=== PATIENT | female | born 1995 | race Caucasian/White ===

== ENCOUNTER 2016-08-24 08:55 | Inpatient (IN) | payer BC, OTHER ==
[2016-08-24] MEDS ORDERED: AMPICILLIN - 2 GM in SODIUM CHLORIDE 100 ML IVPB ONE (09:15)
[2016-08-24] MEDS ORDERED: ELECTROLYTE-148 SOLN 1,000 ML IV SCH (09:30)
[2016-08-24] MEDS: D5W-LR W/ 20 UNITS OXYTOCIN 1,000 ML IV SCH (10:00)
--- NOTE | 2016-08-24 10:01 | HP ---
Past Medical History - Admission History of Present Illness: 21 yo @ 35 3/7 wks, EDC 09/25/2016 complicated by: 1. Prior history of delivery at 33wks On vaginal progesterone for shortened cervical length s/p BMZ at 32 weeks 2. Late to care at 31.1 weeks 3. Iron deficient anemia 4. Decreased platelet, 133 at 31 weeks Patient reports contractions began at 0645 this AM. She denies leakage of fluid or vaginal bleeding, reports positive movement. History Source: Patient Limitations to Obtaining History: No Limitations - Past Medical History Cardiovascular: No: HTN Pulmonary: No: Asthma Gastrointestinal: No: GERD ...: 2 ...Para: 1 ...Term: 0 ...: 1 ... Weeks Gestation by Dates: 35.3 Heme/Onc: Yes: Anemia - Past Surgical History Past Surgical History: Yes: None Hx Myomectomy: No Hx Transabdominal Cerclage: No - Smoking History Smoking history: Never smoked - Alcohol/Substance Use Hx Alcohol Use: No History of Substance Use: reports: None - Social History ADL: Independent Occupation: Student History of Recent Travel: No Home Medications - Allergies Allergies/Adverse Reactions: Allergies Allergy/AdvReac Type Severity Reaction Status Date / Time No Known Drug Allergies Allergy Verified 09/18/15 12:07 nut - unspecified Allergy Itching Verified 09/18/15 12:01 fruits Allergy Uncoded 12/25/13 19:48 - Home Medications Home Medications: Ambulatory Orders Zmo313/Iron Fumarate/FA/Dss [ 19 Tablet] 1 each PO DAILY 09/18/15 Progesterone,Micronized [Endometrin] 100 mg VG DAILY MDD 1 07/31/16 Family Disease History - Family Disease History Family History: Unremarkable Review of Systems - Review of Systems Constitutional: reports: No Symptoms Cardiovascular: reports: No Symptoms Respiratory: reports: No Symptoms Gastrointestinal: reports: No Symptoms Genitourinary: reports: No Symptoms Musculoskeletal: reports: No Symptoms Endocrine: reports: No Symptoms Hematology/Lymphatic: reports: No Symptoms Psychiatric: reports: No Symptoms Physical Exam - Maternity Vital Signs: Vital Signs Temperature 97.5 F L 08/24/16 09:30 Pulse Rate 75 08/24/16 09:30 Respiratory Rate 20 08/24/16 09:30 Blood Pressure 121/77 08/24/16 09:30 O2 Sat by Pulse Oximetry (%) Constitutional: Yes: Well Nourished, No Distress, Calm Cardiovascular: Yes: Regular Rate and Rhythm Lungs: Clear to auscultation - Abdominal Exam/OB Fundal Height: 40 Number of Fetuses: Single Presentation: Vertex Contractions: Yes Regularity: Regular Category: I Accelerations: Non-Uniform Decelerations: None - Vaginal Exam/OB Vaginal Bleediing: No Dilatation (cm): 10 Effacement (%): 100 Amniotic Membrane Status: Bulging Station: -2 - Physical Exam Edema: No Psychiatric: Yes: Alert, Oriented Hemorrhage Risk Assessment - Risk Factors Medium Risk Factors: Yes: None High Risk Factors: Yes: None Risk Score: 1 Risk Level: Medium Risk Assessment/Plan 21 yo @ 35 3/7 wks, labor, active labor 1. Admit to L&D Consents reviewed and signed 2. Admission labs and HIV drawn 3. GBS unknown, will order ampicillin 4. Will proceed with expectant management
[2016-08-24] MEDS ORDERED: WITCH HAZEL 50% (TUCKS) 40 PAD/JAR PAD TP PRN (10:08)
[2016-08-24] MEDS ORDERED: METHYLERGONOVINE MALEATE 0.2 MG/1 ML AMP IM PRN (10:08)
[2016-08-24] MEDS ORDERED: BISACODYL 10 MG SUPP.RECT RC PRN (10:08)
[2016-08-24] MEDS ORDERED: BENZOCAINE 28 GM HEMORRHOIDAL OINTMENT TP PRN (10:08)
[2016-08-24] MEDS ORDERED: BENZOCAINE 20% 57 GM BOTTLE TP PRN (10:08)
--- NOTE | 2016-08-24 10:14 | PN ---
Delivery - Delivery Vaginal Delivery: No Problems Type of Anesthesia: None Episiotomy/Laceration: None EBL (cc): 300 Delivery, Single - Stages of Labor Date 1st Stage Initiatied: 08/24/16 Time 1st Stage Initiated: 06:45 Date 2nd Stage Initiated: 08/24/16 Time 2nd Stage Initiated: 09:15 Date of Delivery: 08/24/16 Time of Delivery: 09:50 Date Placenta Delivered: 08/24/16 Time Placenta Delivered: 10:00 Placenta: Yes: Spontaneous - Condition of Thermite Welder/Buffer Chrome Present: Yes Infant Gender: Female Position: Left, OA - 1 Minute Total Score: 9 5 Minutes Total Score: 9 Remarks - Remarks Remarks: Patient progressed to fully dilated and at 0950 via delivered a viable female infant in JENNIFER position, APGARs 9,9. Weight and length unknown at this time. Head delivered spontaneously followed by shoulders and body without difficulty. Infant with spontaneous cry and nose and mouth was bulb suctioned. Cord was clamped and cut, baby was handed to waiting NICU staff. Perineum and vagina examined, no lacerations noted. Placenta was delivered spontaneously and intact. 20 units of pitocin in 1 L IVF was given. All counts correct x 2. Mother and stable in LDR. EBL 300cc.
[2016-08-24] MEDS ORDERED: DEXTROSE 5%-LACTATED RINGERS 1,000 ML IV SCH (10:30)
[2016-08-24 10:33] VITALS: BMI 19.6
[2016-08-24 11:18] LABS: BASOPHIL 0.3 % (0-2.0); MCH 26.9 pg (25.7-33.7); MCHC 32.5 g/dl (32.0-36.0); MEAN CELL VOLUME 82.9 fl (80-96); MEAN PLT VOLUME 10.8 fl (7.5-11.1); RDW 25.6 % (11.6-15.6); WHITE BLOOD COUNT 12.4 K/mm3 (4.0-10.0)
[2016-08-24 11:39] LABS: INR 0.94 (0.82-1.09); PROTHROMBIN TIME (PATIENT) 10.3 SEC (9.98-11.88)
[2016-08-24 11:42] LABS: ACTIVATED PTT 20.7 SECONDS (26.9-34.4)
[2016-08-24] MEDS ORDERED: TUBERCULIN PPD 5 TU/0.1ML SYRINGE (IN PATIENT USE ONLY) ID ONE (12:00)
[2016-08-24 12:05] LABS: ANISOCYTOSIS 3+; PLATELET COMMENT2 NO CLUMPING NOTED; PLATELET COMMENT3 NO CLOTTING DETECTED; PLATELET COUNT 83 K/MM3 (134-434); PLATELET ESTIMATE DECREASED (NORMAL)
[2016-08-24] MEDS: FERROUS SO4 325 MG TABLET (FP) PO SCH ×2 (12:11→17:01)
[2016-08-24 12:20] LABS: HIV 1 & 2 AB NEGATIVE; HIV 1 AGp24 NEGATIVE
[2016-08-24] MEDS: ACETAMINOPHEN 325 MG TABLET (FP) PO PRN ×3 (14:03→21:56)
[2016-08-24] MEDS: IBUPROFEN 600 MG TABLET (FP) PO PRN ×2 (14:04→21:53)
[2016-08-25] MEDS: IBUPROFEN 600 MG TABLET (FP) PO PRN ×2 (04:23→21:28)
[2016-08-25] MEDS: ACETAMINOPHEN 325 MG TABLET (FP) PO PRN ×2 (04:24→21:29)
[2016-08-25 08:02] LABS: BASOPHIL 0.1 % (0-2.0); EOSINOPHIL 0.5 % (0-4.5); MCHC 32.3 g/dl (32.0-36.0); MEAN CELL VOLUME 83.4 fl (80-96); MEAN PLT VOLUME 10.9 fl (7.5-11.1); PLATELET COUNT 78 K/MM3 (134-434); RDW 26.1 % (11.6-15.6); WHITE BLOOD COUNT 9.9 K/mm3 (4.0-10.0)
[2016-08-25] MEDS: FERROUS SO4 325 MG TABLET (FP) PO SCH ×3 (08:43→17:50)
[2016-08-25] MEDS ORDERED: INFLUENZA VACCINE 45 MCG/0.5 ML (MDV 16-17) IM ONE (10:00)
[2016-08-25] MEDS ORDERED: INFLUENZA VACCINE 60 MCG/0.5 ML (P/F DISP.SYRIN 16-17) IM ONE (10:00)
--- NOTE | 2016-08-25 10:08 | PN ---
Post Progress Note - Subjective Subjective: Patient without acute complaints. Denies spontaneous bleeding or bruising. Reports tolerating oral intake without nausea or vomiting. Ambulating without dizziness. Denies fevers or chills. Pain well controlled with oral pain medication. Pumping, + colostrum Passing flatus. Post Day: 1 Type of Delivery: Vital Signs: Vital Signs Temperature 97.9 F 08/25/16 08:15 Pulse Rate 79 08/25/16 08:15 Respiratory Rate 18 08/25/16 08:15 Blood Pressure 111/64 08/25/16 08:15 O2 Sat by Pulse Oximetry (%) 100 08/24/16 11:00 Breast Exam: Yes: Engorged Uterus: Yes: Fundus Firm, Fundus below umbilicus Abdomen/GI: Yes: Abdomen soft, Passing flatus, Tolerating PO. No: Tender Lochia: Yes: Serosa Lochia, amount: Small Extremities: Yes: Calves non-tender. No: Edema Perineum: Yes: Intact Activity: Ambulating - Labs Labs: CBC WBC 9.9 K/mm3 (4.0-10.0) 08/25/16 06:50 RBC 4.14 M/mm3 (3.60-5.2) 08/25/16 06:50 Hgb 11.2 GM/dL (10.7-15.3) 08/25/16 06:50 Hct 34.5 % (32.4-45.2) 08/25/16 06:50 MCV 83.4 fl (80-96) 08/25/16 06:50 MCHC 32.3 g/dl (32.0-36.0) 08/25/16 06:50 RDW 26.1 % (11.6-15.6) H 08/25/16 06:50 Plt Count 78 K/MM3 (134-434) L 08/25/16 06:50 MPV 10.9 fl (7.5-11.1) 08/25/16 06:50 Neutrophils % 74.0 % (42.8-82.8) 08/25/16 06:50 Lymphocytes % 21.6 % (8-40) D 08/25/16 06:50 Monocytes % 3.8 % (3.8-10.2) 08/25/16 06:50 Eosinophils % 0.5 % (0-4.5) D 08/25/16 06:50 Basophils % 0.1 % (0-2.0) 08/25/16 06:50 Nucleated RBCs Cancelled 08/25/16 06:50 Hypersegmented Neuts Cancelled 08/25/16 06:50 Toxic Granulation Cancelled 08/25/16 06:50 Dohle Bodies Cancelled 08/25/16 06:50 Rey Rods Cancelled 08/25/16 06:50 Platelet Estimate Decreased (NORMAL) 08/24/16 11:05 Platelet Comment Few giant plts 08/24/16 11:05 Platelet Comment No clumping noted 08/24/16 11:05 RBC Morphology 08/25/16 06:50 Polychromasia Cancelled 08/25/16 06:50 Hypochromic-Microcytic Cancelled 08/25/16 06:50 Poikilocytosis Cancelled 08/25/16 06:50 Basophilic Stippling Cancelled 08/25/16 06:50 Anisocytosis 3+ 08/24/16 11:05 Microcytosis Cancelled 08/25/16 06:50 Macrocytosis Cancelled 08/25/16 06:50 Spherocytes Cancelled 08/25/16 06:50 Siderocytes Cancelled 08/25/16 06:50 Sickle Cells Cancelled 08/25/16 06:50 Target Cells Cancelled 08/25/16 06:50 Tear Drop Cells Cancelled 08/25/16 06:50 Ovalocytes Cancelled 08/25/16 06:50 Stomatocytes Cancelled 08/25/16 06:50 Helmet Cells Cancelled 08/25/16 06:50 [place] Bodies Cancelled 08/25/16 06:50 [place] Rings Cancelled 08/25/16 06:50 [place] Cells Cancelled 08/25/16 06:50 Acanthocytes (Spur) Cancelled 08/25/16 06:50 Rouleaux Cancelled 08/25/16 06:50 Fragmented RBCs Cancelled 08/25/16 06:50 Schistocytes Cancelled 08/25/16 06:50 Morphology Comment Cancelled 08/25/16 06:50 Assessment/Plan 21 yo PPD #1 s/p , afebrile, vital signs stable, doing well 1. Continue routine care. 2. CBC without signs of anemia + decreasing platelets. Plan to repeat and if continued trending downward, will consult hematology. 3. Rh positive status, no rhogam indicated. 4. Late to care, will order urine toxicology 5. Encourage ambulation 6. Continue oral pain medication 7. Anticipate discharge home day #2
[2016-08-25] MEDS: PRENATAL VITAMINS W/ FOLIC ACID TABLET (FP) PO SCH (11:05)
[2016-08-25] MEDS: DIPHTH,PERTUSS(ACELL),TET 0.5 ML DISP.SYRIN IM ONE ×2 (11:06→14:22)
[2016-08-25 12:23] LABS: MCH 26.8 pg (25.7-33.7); MEAN CELL VOLUME 83.8 fl (80-96); MEAN PLT VOLUME 9.7 fl (7.5-11.1); PLATELET COUNT 77 K/MM3 (134-434); WHITE BLOOD COUNT 9.5 K/mm3 (4.0-10.0)
[2016-08-25 13:28] LABS: URINE MARIJUANA THC NEGATIVE ng/ml (CUTOFF=50)
--- NOTE | 2016-08-25 15:00 | CONSULT ---
Consult - text type - Consultation Consultation Note: Patient seen and examined We have been asked to consult for thrombocytosis Patient denies any fever/chills/cough/shortness of breath/abdominal pain/nausea/ vomiting/diarrhea/urinary symptoms Delivere yesterday. Normal vaginal delivery. no complications. Some spotting today. PMH Last Vital Signs Temp Pulse Resp BP Pulse Ox 98.6 F 82 18 118/70 100 08/26/16 10:00 08/26/16 10:00 08/26/16 10:00 08/26/16 10:00 08/24/16 11:00 HEENT: CRISTY, EOM Intact Oropharynx: No thrush, No mucositis Neck: Supple Nodes: Without adenopathy Cor: RSR, No murmurs, No gallops Lungs: Clear to P&A Abd: Soft, Normal bowel sounds, No organomegaly Labs/Meds reviewed A/P 21 y/o post D # 2 thrombocytopenia --noted even during her last in 2016 Platelts 70-90 range ? gestational thrombocytopenia vs ITP No prior h/o thrombocytopenia. No active bleeding. No systmeic symptoms If gestational thrombocytopenia expect it to resolve in 2-6 weeks after delivery If ITp --will not resolve checked smear--occ. giant platelets, few atypical lymphocytes, normocytic/ normochromic platelet count in baby has been normal today and yesterday Monitor CBCs and outpatient hematology f/u
[2016-08-25 19:24] LABS: BASOPHIL 0.3 % (0-2.0); EOSINOPHIL 0.5 % (0-4.5); MCH 26.8 pg (25.7-33.7); MCHC 32.1 g/dl (32.0-36.0); MEAN CELL VOLUME 83.6 fl (80-96); MEAN PLT VOLUME 11.1 fl (7.5-11.1); NEUTROPHILS 72.6 % (42.8-82.8); PLATELET COUNT 91 K/MM3 (134-434); RDW 27.4 % (11.6-15.6); WHITE BLOOD COUNT 9.2 K/mm3 (4.0-10.0)
[2016-08-25 20:02] LABS: ALBUMIN 2.9 g/dl (3.4-5.0); ALK PHOS 148 U/L (45-117); ANION GAP 9 (8-16); BILIRUBIN,TOTAL 0.1 mg/dL (0.2-1.0); CALCIUM 8.3 mg/dL (8.5-10.1); CO2 27 mmol/L (21-32); CREATININE 0.4 mg/dL (0.55-1.02); GLUCOSE,RANDOM 65 mg/dL (74-106); LDH 260 U/L (84-246); SGOT/AST 33 U/L (15-37); SGPT/ALT 23 U/L (12-78); TOT PROT 6.5 g/dl (6.4-8.2)
[2016-08-25 20:19] LABS: PLATELET ESTIMATE DECREASED (NORMAL)
[2016-08-25 20:20] LABS: ANISOCYTOSIS 3+; PLATELET COMMENT2 NO CLUMPING NOTED; POIKILOCYTOSIS 1+; POLYCHROMASIA FEW
[2016-08-25] MEDS ORDERED: SENNOSIDES/DOCUSATE COMBO (SENNA PLUS) TABLET (UD) PO PRN (22:00)
--- NOTE | 2016-08-26 08:15 | PN ---
Post Progress Note - Subjective Subjective: 21 yo P2 now s/p Ambulating, voiding, tolerating regular diet No TINOCO, no RUQ pain, no spontaneous bleeding Post Day: 2 Type of Delivery: Vital Signs: Vital Signs Temperature 98.1 F 08/25/16 22:00 Pulse Rate 79 08/25/16 22:00 Respiratory Rate 18 08/25/16 22:00 Blood Pressure 101/66 08/25/16 22:00 O2 Sat by Pulse Oximetry (%) 100 08/24/16 11:00 Breast Exam: Yes: Soft Uterus: Yes: Fundus Firm, Fundus below umbilicus, Non-tender Abdomen/GI: Yes: Abdomen soft Lochia: Yes: Rubra Lochia, amount: Small Extremities: Yes: Calves non-tender Perineum: Yes: Intact Activity: Ambulating - Labs Labs: CBC WBC 9.2 K/mm3 (4.0-10.0) 08/25/16 18:15 RBC 4.12 M/mm3 (3.60-5.2) 08/25/16 18:15 Hgb 11.0 GM/dL (10.7-15.3) 08/25/16 18:15 Hct 34.4 % (32.4-45.2) 08/25/16 18:15 MCV 83.6 fl (80-96) 08/25/16 18:15 MCHC 32.1 g/dl (32.0-36.0) 08/25/16 18:15 RDW 27.4 % (11.6-15.6) H 08/25/16 18:15 Plt Count 91 K/MM3 (134-434) L 08/25/16 18:15 MPV 11.1 fl (7.5-11.1) D 08/25/16 18:15 Neutrophils % 72.6 % (42.8-82.8) 08/25/16 18:15 Lymphocytes % 21.0 % (8-40) 08/25/16 18:15 Monocytes % 5.6 % (3.8-10.2) 08/25/16 18:15 Eosinophils % 0.5 % (0-4.5) 08/25/16 18:15 Basophils % 0.3 % (0-2.0) 08/25/16 18:15 Nucleated RBCs Cancelled 08/25/16 06:50 Hypersegmented Neuts Cancelled 08/25/16 06:50 Toxic Granulation Cancelled 08/25/16 06:50 Dohle Bodies Cancelled 08/25/16 06:50 Rey Rods Cancelled 08/25/16 06:50 Platelet Estimate Decreased (NORMAL) 08/25/16 18:15 Platelet Comment Few giant plts 08/25/16 18:15 Platelet Comment No clumping noted 08/25/16 18:15 RBC Morphology 08/25/16 06:50 Polychromasia Few 08/25/16 18:15 Hypochromic-Microcytic Cancelled 08/25/16 06:50 Poikilocytosis 1+ 08/25/16 18:15 Basophilic Stippling Cancelled 08/25/16 06:50 Anisocytosis 3+ 08/25/16 18:15 Microcytosis Cancelled 08/25/16 06:50 Macrocytosis 1+ 08/25/16 18:15 Spherocytes Cancelled 08/25/16 06:50 Siderocytes Cancelled 08/25/16 06:50 Sickle Cells Cancelled 08/25/16 06:50 Target Cells Cancelled 08/25/16 06:50 Tear Drop Cells Cancelled 08/25/16 06:50 Ovalocytes Cancelled 08/25/16 06:50 Stomatocytes Cancelled 08/25/16 06:50 Helmet Cells Cancelled 08/25/16 06:50 [place] Bodies Cancelled 08/25/16 06:50 [place] Rings Cancelled 08/25/16 06:50 [place] Cells Cancelled 08/25/16 06:50 Acanthocytes (Spur) Cancelled 08/25/16 06:50 Rouleaux Cancelled 08/25/16 06:50 Fragmented RBCs Cancelled 08/25/16 06:50 Schistocytes Cancelled 08/25/16 06:50 Morphology Comment Cancelled 08/25/16 06:50 Assessment/Plan 21 yo P2 PPD # 2 s/p VSS, Afibrile Lab tests improving thrombocytopenia Heme consult appreciated Depoprovera for BC prior to discharge Plan to D/C once labwork is back and showing further improvement Instructed nothing vaginally for 6 wks Return to office in 6 weeks
[2016-08-26 08:45] LABS: BASOPHIL 0.3 % (0-2.0); EOSINOPHIL 0.7 % (0-4.5); MCH 26.5 pg (25.7-33.7); MCHC 31.4 g/dl (32.0-36.0); MEAN CELL VOLUME 84.5 fl (80-96); MEAN PLT VOLUME 9.8 fl (7.5-11.1); NEUTROPHILS 76.9 % (42.8-82.8); PLATELET COUNT 80 K/MM3 (134-434); RDW 27.5 % (11.6-15.6); WHITE BLOOD COUNT 7.2 K/mm3 (4.0-10.0)
[2016-08-26] MEDS: FERROUS SO4 325 MG TABLET (FP) PO SCH ×2 (08:54→12:00)
[2016-08-26 09:08] LABS: INR 0.93 (0.82-1.09); PROTHROMBIN TIME (PATIENT) 10.2 SEC (9.98-11.88)
[2016-08-26 09:10] LABS: ALBUMIN 2.8 g/dl (3.4-5.0); ANION GAP 9 (8-16); BILIRUBIN,TOTAL 0.3 mg/dL (0.2-1.0); CALCIUM 8.1 mg/dL (8.5-10.1); CO2 26 mmol/L (21-32); CREATININE 0.5 mg/dL (0.55-1.02); GLUCOSE,RANDOM 64 mg/dL (74-106); LDH 247 U/L (84-246); SGOT/AST 34 U/L (15-37); SGPT/ALT 23 U/L (12-78); TOT PROT 6.2 g/dl (6.4-8.2)
[2016-08-26 09:11] LABS: ACTIVATED PTT 28.9 SECONDS (26.9-34.4)
[2016-08-26] MEDS ORDERED: medroxyPROGESTERone ACET 150 MG/1 ML VIAL IM ONE (09:15)
[2016-08-26 09:19] LABS: ALK PHOS 136 U/L (45-117); FREE T4 1.27 ng/dl (0.76-1.46); THYROID STIMULATING HORMONE 1.83 uIU/ml (0.358-3.74)
[2016-08-26 10:15] VITALS: BP 118/70; PULSE 82; TEMP 98.6
[2016-08-26] MEDS: PRENATAL VITAMINS W/ FOLIC ACID TABLET (FP) PO SCH (10:44)
[2016-08-26] MEDS: D5W-LR W/ 20 UNITS OXYTOCIN 1,000 ML IV SCH (14:34)
[2016-08-27 06:06] LABS: SERUM IRON 36 ug/dL (27-159); TOTAL IRON BINDING CAPACITY 357 ug/dL (250-450); UIBC 321 ug/dL (131-425)
--- NOTE | 2016-08-27 14:59 | PATH ---
Surgical Pathology Report Patient Name: CHET BOYLE Med. Rec. #: [id number] /Age/Gender: 1995 (Age: 21) / F Account: [id number] Location: [facility] OBS/FORENSICS TEAM DIRECTOR Taken: 08/26/2016 Received: 08/26/2016 Reported: 08/27/2016 Physicians: Sridevi Carbajal M.D. Specimen(s) Received PERIPHERAL BLOOD Clinical History None Provided Final Diagnosis PERIPHERAL BLOOD: FL[facility] [place] ([id number]) shows the following: INTERPRETATION: In the sample analyzed, there is no evidence of B or T-cell proliferative disorders or increased blasts. Electronically Signed Joel Siddiqui M.D. Gross Description Received are 2 green top tubes of peripheral blood which are sent to [facility]. /08/26/2016 [place]08/26/2016
[2016-08-28 08:10] LABS: HEMATOCRIT 35.3 % (34.0-46.6)
--- NOTE | 2016-08-29 13:20 | PATH ---
Surgical Pathology Report Patient Name: CHET BOYLE Med. Rec. #: [id number] /Age/Gender: 1995 (Age: 21) / F Account: [id number] Location: [facility] OBS/THEATRICAL DRESSER Taken: 08/24/2016 Received: 08/25/2016 Reported: 08/29/2016 Physicians: Sridevi Sánchez Specimen(s) Received PLACENTA Clinical History , labor/delivery 35.3 weeks Final Diagnosis PLACENTA, DELIVERY: FOCALLY DISRUPTED, SMALL (<400 GM), THIRD TRIMESTER PLACENTA WITH MODERATE INCREASE IN PREVILLOUS, PERIVILLOUS, AND PRECHORIONIC FIBRIN DEPOSITION, THREE VESSEL UMBILICAL CORD, AND PLACENTAL MEMBRANES FOCAL EARLY ACUTE CHORIOAMNIONITIS. Electronically Signed Prasanth Kim M.D. Gross Description The specimen is received fresh, labeled "placenta" and is a 233 gram, 13.0 x 12.0 x 1.6 cm placenta with attached membranes and umbilical cord. The attached membranes are lars[place] with focal opacities and insert marginally. The umbilical cord measures 28 cm in length and averages 0.8 cm in diameter. The cord inserts eccentrically, 3 cm. to the nearest margin. No true knots or strictures are identified. Cut surface of the umbilical cord reveals 3 vessels. The surface is montes-blue with fibrin deposition and appropriate caliber vessels. The maternal surface is red-brown with focal defects. Sectioning reveals red-brown, spongy parenchyma. No focal lesions are identified. Chief Controller sections are submitted in three cassettes as follows: 1- membrane rolls and umbilical cord; 2-3- full thickness sections of placenta. 08/28/2016 [facility]08/28/2016
--- NOTE | 2016-09-05 09:04 | DS ---
Physical Exam-WAFER POLISHER Vital Signs: Vital Signs Temperature 98.6 F 08/26/16 10:00 Pulse Rate 82 08/26/16 10:00 Respiratory Rate 18 08/26/16 10:00 Blood Pressure 118/70 08/26/16 10:00 O2 Sat by Pulse Oximetry (%) 100 08/24/16 11:00 Labs: CBC, BMP 08/26/16 08:00 08/26/16 08:00 Delivery - Delivery Vaginal Delivery: No Problems Type of Anesthesia: None Episiotomy/Laceration: None EBL (cc): 300 Delivery, Single - Stages of Labor Date 1st Stage Initiatied: 08/24/16 Time 1st Stage Initiated: 06:45 Date 2nd Stage Initiated: 08/24/16 Time 2nd Stage Initiated: 09:15 Date of Delivery: 08/24/16 Time of Delivery: 09:50 Time Placenta Delivered: 10:00 Placenta: Yes: Spontaneous - Condition of Beater Operator/Sole Seamer Present: Yes Name: Groening,Mumford Gender: Female Weight: 4 lb 14 oz Position: Left, OA Total Hours ROM (Hrs/Mins): 0/20 - 1 Minute Total Score: 9 5 Minutes Total Score: 9 - [place] Feeding Plan Initial Plan: Exclusive throughout hospitalization Discharge Summary Reason For Visit: LABOR Procedures: Principal: vaginal delivery Hospital Course: thrombocytopenia noted on admission, not resolved by PPD # 1 s/p hematology consult remained afebrile, vital signs stable for discharge home PPD #2 - Instructions Diet, Activity, Other Instructions: call and schedule appointment 4 weeks for exam. follow up with hematology call office [phone] and ask for the referral to [facility]. Referrals: Sridevi Sánchez MD [Staff Physician] - Disposition: HOME - Home Medications Comprehensive Discharge Medication List: Ambulatory Orders Eha852/Iron Fumarate/FA/Dss [ 19 Tablet] 1 each PO DAILY 09/18/15 Progesterone,Micronized [Endometrin] 100 mg VG DAILY MDD 1 07/31/16
== END 2016-08-26 16:25 | disposition home or self-care (01) | DRG 775 ==
LOC: JDEL 08:55 → JLDR 09:05 → J3W 11:35
PROVIDERS: ADMIT Obstetrics & Gynecology; ATTEND Obstetrics & Gynecology
PROC: 10E0XZZ Delivery of Products of Conception, External Approach (ICD-10-PCS; principal; 2016-08-24)
DX: O99.12 Other diseases of the blood and blood-forming organs and certain disorders involving the immune mechanism complicating childbirth (principal); O99.02 Anemia complicating childbirth; Z3A.35 35 weeks gestation of pregnancy; Z37.0 Single live birth
CPT/HCPCS: 36415; 59409; 80053; 80307; 82728; 82747; 83010; 83540; 83550; 83615; 84439; 84443; 85014; 85025; 85027; 85384; 85610; 85730; 86038; 86431; 86593; 86850; 86880; 86900; 86901; 87389; 88300-TC; 88307-TC; 90686; 90715; G0008